=== PATIENT | female | born 1965 | race Caucasian/White ===

== ENCOUNTER → 2016-10-12 | Day surgery (SDC) | payer BC ==
[~2016-10-12] MED LIST: IV RINGERS,LACTATED 1000ML 1,000 ML IV SCH; PROPOFOL 20 ML IV ONE
--- NOTE | 2016-10-12 08:36 | PDOC2 ---
CONSULT Date of Consult Date of Consult DATE: 10/12/16 TIME: 08:30 Reason for Consult Reason for Consult: Rectal bleeding/ hx polyps 2010 History of Present Illness Reason for Visit: 50 year old patient is seen with above. Last colonoscopy was in 2010 revealed polyps. Three weeks of bleeding with diarrhea has been noted. Weight and appetite are stable. No family history of colon cancer is noted. She otherwise is without additional complaints. Past Medical History Endocrine: Other (Hyperlipidemia) Past Surgical History Past Surgical History: Other (finger and toe surgery) Family History Family History: Heart Disease Social History 1 pack per day Current Medications Current Medications Current Medications Ringer's Solution 1,000 ml @ 100 mls/hr Q10H IV Last administered on t 08:06; Start 10/12/16 at 08:00 Propofol 20 ml @ As Directed STK-MED ONCE IV ; Start 10/12/16 at 08:25; Stop at 08:26; Status DC Propofol 20 ml @ As Directed STK-MED ONCE IV ; Start 10/12/16 at 08:25; Stop at 08:26; Status DC Active Scripts Active Reported No Known Medications Prior To Admisstion (Info) Each 1 Each MC Allergies Allergies: Coded Allergies: codeine (Verified Allergy, Mild, Nausea and Vomiting, 10/12/16) Physical Exam General: Alert HEENT: Atraumatic Lungs: Clear to auscultation Heart: Normal S1, Normal S2 Abdomen: Normal bowel sounds, Soft, No tenderness Vitals VITALS Vital Signs Date Time Temp Pulse Resp B/P (MAP) Pulse Ox O2 Delivery O2 Flow Rate FiO2 10/12/16 07:55 98.8 94 20 95 98.8 Assessment/Plan Assessment/Plan Rectal bleeding- with history of polyps, interval colonoscopy recommended to further assess. Differential includes: hemorrhoids, IBD, colon polyps, cancer, fissure, and/or AVMS.R/B discussed with patient who is willing to proceed. CASEY KUO MD Oct 12, 2016 08:36
[2016-10-12 09:24] VITALS: BP 112/64
--- NOTE | 2016-10-15 15:06 | PATHOLOGY ---
PATHOLOGY REPORT * * * * * * * * FINAL DIAGNOSIS: A. Colon, rectum, biopsy: - Hyperplastic polyps, multiple fragments B. Colon, ascending, biopsy: - Adenomatous polyps, multiple fragments. (SKM:valerie; 10/15/2016) REPORT ELECTRONICALLY SIGNED BY: Flip Thomas M.D. DATE/TIME: 10/15/2016 15:05 * * * * * * * * GROSS PATHOLOGY: A. Received in formalin labeled "Christal Corcoran, rectal polyp," are multiple segments of nava soft tissue measuring from 0.1 up to .03 cm in maximum dimension. The specimen is submitted entirely in cassette A1. B. Received in formalin labeled "ascending colon polyp," are multiple segments of nava soft tissue measuring 0.1 up to 0.3 cm in maximum dimension. The specimen is submitted entirely in cassette B1. ([facility]; 10/12/16) INITIAL CPT CODE(S): A; 21406 B; 79130 Professional services performed [place] [facility] [place] [address] Technical services performed by [facility] at [address] [place] [address] [address] [address]. SPECIMEN(S) RECEIVED: A.Rectal polyp B.Ascending colon polyp CLINICAL HISTORY: History of polyps PATIENT: CHRISTAL CORCORAN /AGE: 912/03/1965 (Age: 50) PATIENT #: [id number] ALT CASE #: SPECIMEN COLLECTION DATE: 10/12/2016 SPECIMEN RECEIVED DATE: 10/12/2016 [facility] - [address] [place] [address] - PHONE: [phone] * * * END OF REPORT * * *
== END | disposition home or self-care (01) ==
LOC: SURG 07:31
PROVIDERS: ATTEND Internal Medicine Gastroenterology
DX: Z09 Encounter for follow-up examination after completed treatment for conditions other than malignant neoplasm (principal); Z86.010 Personal history of colon polyps; D12.2 Benign neoplasm of ascending colon; E78.00 Pure hypercholesterolemia, unspecified; K21.9 Gastro-esophageal reflux disease without esophagitis; Z72.0 Tobacco use; Z88.6 Allergy status to analgesic agent
CPT/HCPCS: 45380; 45385; 88305; J2704